=== PATIENT | female | born 1965 | race Asian ===

== ENCOUNTER 2018-10-03 08:28 | Day surgery (SDC) | payer OTHER ==
[2018-10-03 10:35] VITALS: TEMP 97.4
[2018-10-03 11:23] VITALS: BP 118/74; PULSE 54
--- NOTE | 2018-10-04 18:14 | PATH ---
Surgical Pathology Report Patient Name: [facility]. Rec. #: [id number] /Age/Gender: 1965 (Age: 53) / F Account: [id number] Location: [facility]-ENDOS[facility] Taken: 10/03/2018 Received: 10/03/2018 Reported: 10/04/2018 Physicians: Mario Murphy M.D. Specimen(s) Received A: POLYP SIGMOID B: POLYP CECUM Clinical History Screening, history of breast cancer Postoperative diagnosis: Colon polyps Final Diagnosis A. SIGMOID POLYP, BIOPSY: POLYPOID COLONIC MUCOSA WITH NO SIGNIFICANT PATHOLOGIC CHANGE. B. CECUM POLYP, POLYPECTOMY: TUBULOVILLOUS ADENOMA. Electronically Signed Meagan Lloyd M.D. Gross Description A. Received in formalin, labeled "polyp sigmoid" are 3 castaneda, irregular portions of soft tissue ranging from 0.2-0.7 cm. in greatest dimension. The specimens are submitted in toto in one cassette. B. Received in formalin, labeled with the patient's name and indicated on the requisition to be a polyp from the cecum, are 5 castaneda, irregular to polypoid portions of soft tissue ranging from 0.4-1.0 cm. in greatest dimension. The specimens are submitted in toto in one cassette. 10/03/201810/03/2018
== END 2018-10-03 11:22 | disposition home or self-care (01) ==
LOC: JASU-ENDO 08:28
PROVIDERS: ATTEND Internal Medicine Gastroenterology
PROC: 0DBN8ZX Excision of Sigmoid Colon, Via Natural or Artificial Opening Endoscopic, Diagnostic (ICD-10-PCS; 2018-10-03)
PROC: 0DBH8ZX Excision of Cecum, Via Natural or Artificial Opening Endoscopic, Diagnostic (ICD-10-PCS; principal; 2018-10-03 09:30)
DX: Z12.11 Encounter for screening for malignant neoplasm of colon (principal); D12.0 Benign neoplasm of cecum; D12.5 Benign neoplasm of sigmoid colon
CPT/HCPCS: 88305-TC

== ENCOUNTER 2025-04-25 06:42 | Day surgery (SDC) | payer BC ==
[2025-04-17 13:39] VITALS: BMI 31.8
[2025-04-25 11:29] VITALS: TEMP 97.4
[2025-04-25 11:59] VITALS: BP 123/65
[2025-04-25 12:13] VITALS: PULSE 59; RESP 13
== END 2025-04-25 12:30 | disposition home or self-care (01) ==
LOC: JASU-ENDO 06:42
PROVIDERS: ATTEND Internal Medicine Gastroenterology
PROC: 0DBL8ZX Excision of Transverse Colon, Via Natural or Artificial Opening Endoscopic, Diagnostic (ICD-10-PCS; 2025-04-25)
PROC: 0DBK8ZX Excision of Ascending Colon, Via Natural or Artificial Opening Endoscopic, Diagnostic (ICD-10-PCS; principal; 2025-04-25 10:00)
DX: Z12.11 Encounter for screening for malignant neoplasm of colon (principal); D12.2 Benign neoplasm of ascending colon; D12.3 Benign neoplasm of transverse colon
CPT/HCPCS: 82962; 88305-TC